=== PATIENT | male | born 1950 | race Caucasian/White ===

== ENCOUNTER → 2019-01-09 | Emergency (ER) | payer BC ==
[~2019-01-09] VITALS: Ht 170.2 cm; Wt 86.2 kg
[2019-01-09 18:55] VITALS: BP_SYST 191
== END | disposition still patient (30) ==
LOC: SED 18:27
DX: K62.5 Hemorrhage of anus and rectum (principal); K59.00 Constipation, unspecified; Z53.21 Procedure and treatment not carried out due to patient leaving prior to being seen by health care provider